=== PATIENT | male | born 1990 | race African-American/Black ===

== ENCOUNTER 2018-10-29 19:54 | Emergency (ER) | payer OTHER ==
[~2018-10-29] VITALS: Ht 180.3 cm; Wt 97.0 kg
[~2018-10-29 19:54] MED LIST: COLC0.6T6 PO; HYDR-4011 PO; INDO25CA16 PO
[2018-10-29 19:59] VITALS: Ht 180.3 cm; Wt 97.0 kg
[2018-10-29] MEDS ORDERED: KETOROLAC 30 MG INJ IV STA (20:28)
[2018-10-29] MEDS ORDERED: SOD CHLORIDE 0.9% 1,000 ML IV ONE (21:38)
--- NOTE | 2018-10-29 21:52 | ERD ---
ER Documentation Chief Complaint Chief Complaint C/O WORSENING LT ANKLE PAIN AND SWELLING SINCE YESTERDAY, - INJURY HPI 28-year-old male presents with progressive worsening left ankle pain for last 2 days. He denies any history of trauma. 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 Today he has difficulty weightbearing. Denies any fevers, vomiting, shortness of breath or chest pain. Patient is an insulin-dependent diabetic. ROS All systems reviewed and are negative except as per history of present illness. Medications Home Meds Active Scripts Colchicine* (Colcrys*) 0.6 Mg Tablet, 0.6 MG PO BID for 3 Days, TAB Prov:EFREN NICHOLE MD 10/29/18 Hydrocodone/Acetaminophen (Hemlock 5-325 Tablet) 1 Each Tablet, 1 TAB PO Q6H PRN for PAIN, #7 TAB Prov:EFREN NICHOLE MD 10/29/18 Indomethacin* (Indocin*) 25 Mg Capsule, 25 MG PO Q6, #20 CAP Prov:EFREN NICHOLE MD 10/29/18 Allergies Allergies: Coded Allergies: No Known Allergy (Unverified , 10/29/18) PMhx/Soc Medical and Surgical Hx: pt denies Medical Hx, pt denies Surgical Hx Hx Alcohol Use: No Hx Substance Use: No Hx Tobacco Use: No Smoking Status: Never smoker Physical Exam Vitals Vital Signs Date Temp Pulse Resp B/P (MAP) Pulse Ox O2 O2 Flow FiO2 Time Delivery Rate 10/29/18 97.2 112 22 126/63 99 19:59 (84) Physical Exam Const: No acute distress Head: Atraumatic Eyes: Normal Conjunctiva ENT: Normal External Ears, Nose and Mouth. Neck: Full range of motion. No meningismus. Resp: Clear to auscultation bilaterally Cardio: Regular rate and rhythm, no murmurs Abd: Soft, non tender, non distended. Normal bowel sounds Skin: No petechiae or rashes Back: No midline or flank tenderness Ext: No cyanosis, or edema. Left ankle joint tenderness without significant effusion. No warmth or erythema. Difficulty ambulating due to pain. Neur: Awake and alert Psych: Normal Mood and Affect Result Diagram: 10/29/18205810/29/182058 Results 24 hrs Laboratory Tests Test 10/29/18 20:59 White Blood Count 8.9 10^3/ul Red Blood Count 5.88 10^6/ul Hemoglobin 17.0 g/dl Hematocrit 49.8 % Mean Corpuscular Volume 84.7 fl Mean Corpuscular Hemoglobin 28.9 pg Mean Corpuscular Hemoglobin Concent 34.1 g/dl Red Cell Distribution Width 12.1 % Platelet Count 239 10^3/UL Mean Platelet Volume 11.5 fl Immature Granulocytes % 0.300 % Neutrophils % 65.0 % Lymphocytes % 25.9 % Monocytes % 8.2 % Eosinophils % 0.3 % Basophils % 0.3 % Nucleated Red Blood Cells % 0.0 /100WBC Immature Granulocytes # 0.030 10^3/ul Neutrophils # 5.7 10^3/ul Lymphocytes # 2.3 10^3/ul Monocytes # 0.7 10^3/ul Eosinophils # 0.0 10^3/ul Basophils # 0.0 10^3/ul Nucleated Red Blood Cells # 0.0 10^3/ul Sodium Level 141 mmol/L Potassium Level 4.5 mmol/L Chloride Level 102 mmol/L Carbon Dioxide Level 25 mmol/L Anion Gap 14 Blood Urea Nitrogen 15 mg/dl Creatinine 1.17 mg/dl Est Glomerular Filtrat Rate mL/min > 60 mL/min Glucose Level 323 mg/dl Uric Acid 10.8 mg/dl Calcium Level 9.9 mg/dl Total Bilirubin 0.9 mg/dl Direct Bilirubin 0.00 mg/dl Indirect Bilirubin 0.9 mg/dl Aspartate Amino Transf (AST/SGOT) 26 IU/L Alanine Aminotransferase (ALT/SGPT) 42 IU/L Alkaline Phosphatase 92 IU/L Total Protein 8.3 g/dl Albumin 5.1 g/dl Globulin 3.20 g/dl Albumin/Globulin Ratio 1.59 Current Medications Medications Dose Sig/Jarret Start Time Status Last (Trade) Ordered Route PRN Stop Time Admin Dose Reason Admin Ketorolac 30 mg ONCE STAT 10/29/18 DC 10/29/18 Tromethamine IV 20:28 10/29/18 20:57 (Toradol) 20:29 Sodium 1,000 ml @ Q0M ONCE 10/29/18 DC Chloride 0 mls/hr IV 21:38 10/29/18 21:43 Procedures/MDM X-ray left ankle 3V Interpreted by me: Bones: No fracture Joints: No dislocation Foreign Body: None. Impression-normal left ankle x-ray CBC is normal. Uric acid is elevated. Blood sugar is 323. Bicarb is normal. Patient is given 1 normal saline IV, 8 units Humalog subcutaneously. Patient was given Toradol 30 mg IV. Patient presents with signs and symptoms of likely acute gout of the left ankle. Current signs or symptoms do not suggest septic arthritis, there is no signs of fracture, dislocation, DKA, sepsis. She will be treated with indomethacin, colchicine, short course of Hemlock recommendations return precautions for fevers, redness, new worsening symptoms. Patient advised otherwise nonweightbearing status until improvement in pain and advance activity as tolerated and follow-up with primary doctor this week. Administered Rigo bandage and crutches training and neurovascular intact after Rigo bandage. Departure Diagnosis: Primary Impression: Gout Gout site: ankle Gout etiology: unspecified cause Chronicity: acute Laterality: left Qualified Codes: M10.9 - Gout, unspecified Additional Impression: Ankle pain Chronicity: acute Laterality: left Qualified Codes: M25.572 - Pain in left ankle and joints of left foot Condition: Stable Patient Instructions: Gouty Arthritis Additional Instructions: Evaluation shows gout is likely cause of pain. See primary doctor for follow-up this week. Recheck for fevers, redness, new worsening symptoms. Recommend no weightbearing and use crutches for pain. EFREN NICHOLE MD Oct 29, 2018 21:52
[2018-10-29] MEDS ORDERED: ACCU-CHEK XX ONE (22:00)
[2018-10-29] MEDS ORDERED: INSULIN LISPRO 100 UNIT/ML VIAL SC ONE (22:00)
[2018-10-29 23:10] VITALS: BP 114/72; PULSE 80; RESP 20
== END 2018-10-29 23:12 | disposition home or self-care (01) ==
LOC: FTE 19:54
DX: M10.9 Gout, unspecified (principal)
CPT/HCPCS: 36415; 73610; 80053; 82962; 84560; 85025; 96372; 96374; 99284; J1815; J1885; J7030

== ENCOUNTER 2018-11-18 09:01 | Emergency (ER) | payer OTHER ==
[~2018-11-18] VITALS: Ht 182.9 cm; Wt 90.0 kg
[~2018-11-18 09:01] MED LIST changes: +CLOT30CR24 TOP
[2018-11-18 09:08] VITALS: BP 134/86; PULSE 86; RESP 18; Ht 182.9 cm; Wt 90.0 kg
== END 2018-11-18 11:15 | disposition home or self-care (01) ==
LOC: FTE 09:01
DX: M79.672 Pain in left foot (principal); E11.9 Type 2 diabetes mellitus without complications
CPT/HCPCS: 99283